=== PATIENT | male | born 1950 | race Caucasian/White ===

== ENCOUNTER → 2018-05-30 | Outpatient (CLI) | payer MEDICARE, BC ==
--- NOTE | 2018-05-30 22:09 | MR ---
MRI CERVICAL SPINE: CLINICAL HISTORY: Cervicalgia per order. Headache with neck and back pain for years causing pain or w eakness into left arm and fingers per patient. TECHNIQUE: Multiplanar, multisequence imaging of the cervical spine is performed without IV contrast. COMPARISON: Prior MRI cervical spine May 14, 2014.. FINDINGS: Sagittal images of the cervical spine show the craniocervical junction to remain within nor mal limits. The cervical and upper thoracic spinal cord remains normal in course, caliber, and signa l. Vertebral alignment is stable and straightened. The vertebral body heights are normal. There is multilevel disc desiccation with mild to moderate disc space narrowing. There is redemonstration pos terior disc herniation C2-C3 level effaces the anterior thecal sac. There is heterogeneous motor type II degenerative change in the anterior aspect of the upper to mid cervical spine with moderate to ad vanced spurring redemonstrated. Axial images at C2-C3 level redemonstrates subtle spondylolisthesis and bilateral uncovertebral facet degenerative changes as well as broad-based left paracentral disc protrusion, there is effacement of the anterior thecal sac with advanced left and mild right-sided neural foraminal narrowing redemonst rated. Axial images C3-C4 level demonstrate a focal vertebral facet degenerative changes bilaterally. There is mild left greater than right bilateral neural foraminal narrowing redemonstrated. Axial images at C4-C5 level shows a right paracentral spur disc complex effacing the anterior thecal sac with uncovertebral facet degenerative changes bilaterally, there is asymmetric mild to moderate r ight-sided neural foraminal narrowing. No significant change from prior. Axial images at C5-C6 level shows a right paracentral spurring effacing anterior thecal sac with mild bilateral neural foraminal narrowing due to marginal spurring. No significant change from prior. Axial images at C6-C7 level broad-based spur disc complex mildly effacing the anterior thecal sac and causing moderate left greater than right bilateral neural foraminal narrowing. Axial images at the C7-T1 level ligamentum flavum hypertrophy effacing posterior lateral thecal sac, bilateral neural foramina are patent. IMPRESSION: Stable straightening of cervical spine with multilevel degenerative changes as detailed a javan, no significant change from prior.
--- NOTE | 2018-05-31 16:26 | MR ---
EXAMINATION TYPE: MR lumbar spine wo/w con DATE OF EXAM: 05/30/2018 COMPARISON: None HISTORY: Low back pain TECHNIQUE: Multiplanar, multisequence images of the lumbar spine were acquired utilizing 7.5 mL intravenous Gada vist gadolinium contrast. FINDINGS: Postsurgical levels are extremely limited secondary to extensive susceptibility metallic ar tifact. There is postsurgical fixation of L4-S1. The remaining lumbar vertebral bodies maintain blanche l vertebral body heights. Conus medullaris is unremarkable terminating at 1201. Nonenhancing T2 and T 1 hypointense T12 posterior vertebral body lesion may represent inhomogeneous bone marrow is no enhan cement is seen. L1-L2: There is a broad-based disc bulge, facet arthropathy and ligamentum flavum buckling creating m oderate left neural foraminal narrowing and mild right neural foramina narrowing. No significant spin al canal stenosis. No abnormal enhancement. L2-L3: There is ligamentum flavum buckling and facet arthropathy creating impingement of the bilatera l exiting L2 nerve roots and moderate neural foraminal narrowing as well as moderate spinal canal evens nosis. No abnormal enhancement. L3-L4: There is limitation in evaluation of this level however there appears to be a broad-based disc bulge creating at least mild spinal canal stenosis and at least mild bilateral neural foraminal narr owing. No abnormal enhancement. L4-L5: Nondiagnostic due to extensive susceptibility artifact. L5-S1: Nondiagnostic due to extensive susceptibility artifact. IMPRESSION: 1. Extensive susceptibility artifact is seen at the postsurgical levels rendering the postsurgical le vels nondiagnostic. Therefore evaluation for epidural fibrosis at these levels is also nondiagnostic. 2. Degenerative disc disease from L1 through L4 creating moderate spinal canal stenosis at L2-L3 and mild spinal canal stenosis at L3-L4 as well as impingement of the L2 exiting nerve roots at L2-L3 and additional level there are foraminal narrowing as described above.
== END | disposition home or self-care (01) ==
LOC: RADMRIMAIN 11:15
PROVIDERS: ATTEND Psychiatry & Neurology Neurology
DX: M48.02 Spinal stenosis, cervical region (principal); M99.71 Connective tissue and disc stenosis of intervertebral foramina of cervical region; M50.21 Other cervical disc displacement, high cervical region; M43.12 Spondylolisthesis, cervical region; M47.812 Spondylosis without myelopathy or radiculopathy, cervical region; M99.73 Connective tissue and disc stenosis of intervertebral foramina of lumbar region; M48.061 Spinal stenosis, lumbar region without neurogenic claudication; M51.26 Other intervertebral disc displacement, lumbar region; M51.36 Other intervertebral disc degeneration, lumbar region; M46.96 Unspecified inflammatory spondylopathy, lumbar region
CPT/HCPCS: 82565; 84520; 72141; 72158; 36415; A9585

== ENCOUNTER 2018-08-22 06:22 | Day surgery (SDC) | payer MEDICARE, BC ==
[2018-08-20 09:36] VITALS: BMI 23.8
[~2018-08-22 06:22] MED LIST: DEXAMETHASONE SOD PHOSPHATE 10 MG/ML 1 ML VIAL IV ONE; HEPARIN SODIUM,PORCINE 5,000 UNIT/ML 1 ML VIAL SQ ONE; HYDROmorphone 0.5 MG/0.5 ML SYRINGE IVP PRN; LIDOCAINE 1% 20 ML VIAL (10MG/ML) FOR IV START INTRADERMA PRN; ONDANSETRON 4 MG/2 ML VIAL IVP ONE; SCOPOLAMINE 1.5MG/72HR PATCH TRANSDERM ONE; ceFAZolin IN SWFI 2 GM/20 ML SYRINGE IVP ONE
[2018-08-22] MEDS ORDERED: LACTATED RINGERS 1,000 ML IV ONE ×2 (06:52→10:23)
[2018-08-22] MEDS: LACTATED RINGERS 1,000 ML IV SCH (06:52)
[2018-08-22] MEDS ORDERED: MIDAZOLAM 2 MG/2 ML VIAL IVP ONE (07:32)
[2018-08-22] MEDS ORDERED: HYDROmorphone (PF) 1 MG/ML ONE (07:52)
[2018-08-22] MEDS ORDERED: SUCCINYLCHOLINE CHLORIDE 100 MG/5 ML SYR IV ONE (07:52)
[2018-08-22] MEDS ORDERED: MIDAZOLAM 2 MG/2 ML VIAL ONE (07:52)
[2018-08-22] MEDS ORDERED: ROPIVACAINE 5 MG/ML 30 ML VIAL ONE (07:52)
[2018-08-22] MEDS ORDERED: PROPOFOL 10 MG/ML 20 ML VIAL IV ONE (07:52)
[2018-08-22] MEDS ORDERED: ePHEDrine SULFATE/0.9% NACL/PF 50 MG/5 ML SYRINGE IV ONE (07:52)
[2018-08-22] MEDS ORDERED: LIDOCAINE 1% INJ 10MG/ML (20 ML MDV) ONE (07:52)
[2018-08-22] MEDS ORDERED: GLYCOPYRROLATE 0.2 MG/ML 2 ML VIAL ONE (07:52)
[2018-08-22] MEDS ORDERED: KETOROLAC 30 MG/ML 1 ML VIAL ONE (07:52)
[2018-08-22] MEDS ORDERED: fentaNYL (PF) 50 MCG/ML 2 ML AMP ONE (07:52)
[2018-08-22] MEDS ORDERED: DEXAMETHASONE SOD PHOS (MDV) 100 MG/10 ML VIAL ONE (07:52)
[2018-08-22] MEDS ORDERED: NEOSTIGMINE 1 MG/ML 10 ML VIAL ONE (07:52)
[2018-08-22] MEDS ORDERED: ROCURONIUM BROMIDE 10 MG/ML 10 ML VIAL IV ONE (07:52)
[2018-08-22] MEDS ORDERED: fentaNYL (PF) 50 MCG/ML 2 ML AMP IVP ONE (07:55)
--- NOTE | 2018-08-22 07:59 | P.GSHP ---
History of Present Illness H&P Date: 08/22/18 Chief Complaint: Bilateral inguinal hernia Patient on our service. Last seen in June. Patient has complaints of bilateral inguinal hernia. Patient mainly had complaints of left groin swelling and some discomfort there. No change in size since first seen. No history of previous repair. Past Medical History Past Medical History: GERD/Reflux, Hyperlipidemia, Hypertension, Osteoarthritis (OA) Additional Past Medical History / Comment(s): inguinal hernia-rand, states getting over cold History of Any Multi-Drug Resistant Organisms: None Reported Past Surgical History: Back Surgery, Joint Replacement, Orthopedic Surgery Additional Past Surgical History / Comment(s): Sinus surgery, spinal fusion, rand shoulder replacements, rand cataracts, surgery to correct muscle left eye for cross eyed, dupuytren contracture(rt hand x 3, left hand x 1), surgery left eye for glaucoma Past Anesthesia/Blood Transfusion Reactions: Previous Problems w/ Anesthesia Additional Past Anesthesia/Blood Transfusion Reaction / Comment(s): States problems "slows heart down" one time 30 yrs ago, Smoking Status: Former smoker - Past Family History Mother Family Medical History: No Reported History Father Family Medical History: GERD/Reflux, Hypertension Medications and Allergies Home Medications Medication Instructions Recorded Confirmed Type Aspirin 81 mg PO DAILY 09/17/14 08/20/18 History Labetalol [Trandate] 150 mg PO BID 09/17/14 08/20/18 History Omeprazole [PriLOSEC] 20 mg PO AC-SUPPER 09/17/14 08/20/18 History Pravastatin Sodium [Pravachol] 40 mg PO HS 09/17/14 08/20/18 History Tamsulosin [Flomax] 0.4 mg PO HS 08/20/18 08/20/18 History Allergies Allergy/AdvReac Type Severity Reaction Status Date / Time No Known Allergies Allergy Verified 08/20/18 09:24 Surgical - Exam Vital Signs Temp Pulse Resp BP Pulse Ox 97.5 F L 61 18 134/79 99 08/22/18 06:41 08/22/18 06:41 08/22/18 06:41 08/22/18 06:41 08/22/18 06:41 Physical exam: General: Well-developed, well-nourished HEENT: Normocephalic, sclerae nonicteric Abdomen: Nontender, nondistended, bilateral inguinal hernia left greater than right Extremities: No edema Neuro: Alert and oriented Assessment and Plan (1) Bilateral inguinal hernia Narrative/Plan: Will proceed with laparoscopic da Ede assisted repair bilateral inguinal hernia with mesh, possible open at this time. Risks of bleeding, infection, recurrence, bladder and bowel injury, numbness, nerve injury, conversion to an open procedure were discussed with the patient. The patient understands and wishes to proceed. Current Visit: Yes Status: Acute Code(s): K40.20 - BI INGUINAL HERNIA, W/O OBST OR GANGRENE, NOT SPCF RECUR SNOMED Code(s): 50190651
[2018-08-22] MEDS ORDERED: BUPIVACAIN-EPI 0.25%-1:200,000 30 ML VIAL SQ ONE (08:38)
--- NOTE | 2018-08-22 09:07 | P.ONQ ---
Anesthesiology Proc Note - PNB - Peripheral Nerve Block Performed Bilateral Transversus Abdominis Single Time Out Performed: Yes Procedure Start Time: 07:32 Indication: Acute Post-Operative Pain, Analgesia Specifically requested for management of pain by DrLulú: Everett Guzman Sedation Type: Sedate with meaningful contact maintained Preparation: Sterile Prep Position: Supine Catheter: None Needle Types: Other (see comment) (Pajunk) Needle Size: 100mm (4") Needle Gauge: 21 Technique: Ultrasound Injectate: Other (see comment) (0.25% rop/ .05% lido 30cc per side) Adjunct: Epinephrine (see comment for dilution ratio) (1:200,000) Blood Aspirated: No Pain Paresthesia on Injection Noted: No Resistance on Injection: Normal Events: Uneventful and Well Tolerated
[2018-08-22] MEDS ORDERED: HYDROcodone/APAP 5-325MG 1 EACH TAB PO PRN (10:27)
[2018-08-22] MEDS ORDERED: NALOXONE 0.4 MG/ML 1 ML VIAL IV PRN (10:27)
[2018-08-22] MEDS ORDERED: TAMSULOSIN 0.4 MG CAP.ER.24H PO STA ×2 (10:27→11:20)
--- NOTE | 2018-08-22 10:34 | P.OP ---
Date of Procedure: 08/22/18 Procedure(s) Performed: PREOPERATIVE DIAGNOSIS: Bilateral inguinal hernia POSTOPERATIVE DIAGNOSIS: Same PROCEDURE: Laparoscopic repair bilateral inguinal hernia with the da Ede robot assistance with mesh SURGEON: Megan EBL: Minimal ANESTHESIA: General COMPLICATIONS: None OPERATIVE PROCEDURE: Patient was placed in the operating table in the supine position. The patient was placed under general anesthesia. The patient was then placed the supine. The abdomen was prepped and draped in usual sterile fashion. A small curvilinear supraumbilical incision was made. The fascia was retracted anteriorly with Anitha forceps. The Veress needle was inserted. The saline drop test was normal. Insufflation took place to 15 mmHg. A 5 mm trocar was placed into the peritoneal cavity. This was later switched to a 12 mm trocar. 2 additional 8 mm trochars were placed in the right upper quadrant and left upper quadrant under visualization. The robotic arms were then brought in and docked into place. The fenestrated bipolar was used in the left arm and the laparoscopic avtar was utilized in the right arm. A 30 12 mm scope was used in the up position. The peritoneal cavity was inspected. The patient had a visible indirect hernia on the right that was small to moderate sized. The patient had sigmoid colon that was adherent to the peritoneum in the left lower quadrant making it difficult to visualize the hernia itself. The right side was first addressed. The peritoneum was incised in a horizontal fashion cephalad to the internal inguinal ring. Following that careful dissection of the preperitoneal space took place. This took place using both electrocautery, sharp dissection but primarily blunt dissection. Visualization of the pubic tubercle and Brenton's ligament took place medially. Full dissection took place laterally as well. The hernia sac was fully dissected. It should be noted that during our dissection the patient's bladder was noted to be already fairly distended. We did not have a Wheat catheter in place but was placed postoperatively. Despite the bladder having urinary did not impede our dissection. Once we had adequate space the 15 x 10 progrip mesh was advanced into the preperitoneal space and flattened out appropriately to cover all potential hernia sites. No sutures were used. The left side was then addressed. The peritoneal dissection took place in a similar fashion. The patient had a little larger indirect hernia on this side with a very large piece of preperitoneal fat extending into the canal as a lipoma. This was fully excised with the use of electrocautery and retrieved using an Endo Catch bag at the end of the procedure. The preperitoneal dissection took place so that both right and left sides were connected to one another anterior to the bladder. The mesh was again utilized and flattened out appropriately. The mesh was covering the opposite side mesh in the midline during that time. The peritoneal defect was then closed bilaterally using a locking 2-0 VLok suture. A small peritoneal defect on the right side was closed using a [id number] 3 -0 Vicryl stitch. The needles and lipoma were then removed. The pneumoperitoneum was then evacuated. The fascia at the 12 mm site was closed using the Frankie Alas technique and an 0 Vicryl stitch. The skin of all 3 sites was closed using a 4-0 Monocryl stitch. Skin glue was then applied. DISPOSITION: Stable to recovery room
[2018-08-22] MEDS ORDERED: PANTOPRAZOLE 40 MG TABLET PO SCH (17:30)
[2018-08-22] MEDS ORDERED: PRAVASTATIN SODIUM 40 MG TAB PO SCH (21:00)
[2018-08-22] MEDS ORDERED: LABETALOL 100 MG TAB PO SCH (21:00)
[2018-08-23] MEDS: LACTATED RINGERS 1,000 ML IV SCH (01:24)
[2018-08-23] MEDS ORDERED: LABETALOL 100 MG TAB PO SCH (09:00)
[2018-08-23] MEDS ORDERED: ASPIRIN 81 MG PO SCH (09:00)
[2018-08-23 16:57] VITALS: BP 121/66; PULSE 51; RESP 12; TEMP 97.9
--- NOTE | 2018-08-23 17:42 | P.DS ---
Providers Expected date of discharge: 08/23/18 Attending physician: Everett Guzman Primary care physician: Stuart Cottrell - Discharge Diagnosis(es) (1) Bilateral inguinal hernia Patient underwent elective bilateral inguinal hernia repair robotically yesterday. Postoperatively the patient was kept overnight because of a history of BPH and urinary retention. Wheat catheter was left in place overnight. Patient's catheter was removed this morning. He has been able to void he says a normal volume for him throughout the day. The volumes have been somewhat low however. Taking Flomax. He is anxious to go home. We'll discharge. Follow- up one week. Current Visit: Yes Status: Acute Plan - Discharge Summary Discharge Rx Participant: Yes New Discharge Prescriptions: New Hydrocodone/Acetaminophen [Anita 5-325] 1 tab PO Q6HR PRN 3 Days #10 tab PRN Reason: Pain No Action Aspirin 81 mg PO DAILY Pravastatin Sodium [Pravachol] 40 mg PO HS Omeprazole [PriLOSEC] 20 mg PO AC-SUPPER Labetalol [Trandate] 100 mg PO BID Tamsulosin [Flomax] 0.4 mg PO HS Discharge Medication List Aspirin 81 mg PO DAILY 09/17/14 [History] Labetalol [Trandate] 100 mg PO BID 09/17/14 [History] Omeprazole [PriLOSEC] 20 mg PO AC-SUPPER 09/17/14 [History] Pravastatin Sodium [Pravachol] 40 mg PO HS 09/17/14 [History] Tamsulosin [Flomax] 0.4 mg PO HS 08/20/18 [History] Hydrocodone/Acetaminophen [Anita 5-325] 1 tab PO Q6HR PRN 3 Days #10 tab [Rx] Follow up Appointment(s)/Referral(s): Everett Guzman MD [Medical Doctor] - 08/29/18 1:50 pm Patient Instructions/Handouts: *Surgery [facility] - (Anesthesia) Discharge Instructions Outpatient Surgery, Inguinal Hernia Repair (DC)
== END 2018-08-23 18:20 | disposition home or self-care (01) ==
LOC: OR 06:22 → 4SSUR 10:26 → OR 08-23 18:20
PROVIDERS: ATTEND Surgery
DX: K40.20 Bilateral inguinal hernia, without obstruction or gangrene, not specified as recurrent (principal); K21.9 Gastro-esophageal reflux disease without esophagitis; E78.5 Hyperlipidemia, unspecified; I10 Essential (primary) hypertension; N40.0 Benign prostatic hyperplasia without lower urinary tract symptoms; M19.90 Unspecified osteoarthritis, unspecified site; E78.00 Pure hypercholesterolemia, unspecified; Z87.891 Personal history of nicotine dependence; Z79.82 Long term (current) use of aspirin; Z79.899 Other long term (current) drug therapy
CPT/HCPCS: 49650; 64488; 88302; C1781; J2250; J1644; J1100 ×2; J2710; J2405; J2001; J3010; J1885; J1170; J2795; J0330; J2704; J0690

== ENCOUNTER 2019-01-03 07:08 | Emergency (ER) | payer MEDICARE, BC ==
[2019-01-03 07:27] VITALS: BP 166/87; PULSE 61; RESP 18; TEMP 97.2
[2019-01-03] MEDS ORDERED: HYDROcodone/APAP 5-325MG 1 EACH TAB PO STA (07:46)
[2019-01-03] MEDS ORDERED: ORPHENADRINE 30 MG/ML 2 ML VIAL IM STA (07:46)
[2019-01-03] MEDS ORDERED: KETOROLAC 60 MG/2 ML VIAL IM STA (07:46)
--- NOTE | 2019-01-03 07:49 | ED ---
Back Pain HPI - General Chief Complaint: Back Pain/Injury Stated Complaint: Back Pain Time Seen by Provider: 01/03/19 07:35 Source: patient, RN notes reviewed, old records reviewed Limitations: no limitations - History of Present Illness Initial Comments: Patient is a 68-year-old male presents emergency department today for evaluation with complaints of lower back pain, progressively worsens Monday. He has a pain management stimulator within the left side of his lower back. Patient reports he has no oral pain pills at this time. Patient states that he sees Dr. Keller for pain management in this spine stimulator. He has had no other significant complaints. Patient denies any saddle anesthesias. He reports the pain radiates from the left aspect of his lower back and will radiate, hip and leg. - Related Data Home Medications Medication Instructions Recorded Confirmed Aspirin 81 mg PO DAILY 09/17/14 01/03/19 Labetalol [Trandate] 100 mg PO BID 09/17/14 01/03/19 Omeprazole [PriLOSEC] 20 mg PO AC-SUPPER 09/17/14 01/03/19 Pravastatin Sodium [Pravachol] 40 mg PO HS 09/17/14 01/03/19 Tamsulosin [Flomax] 0.4 mg PO HS 08/20/18 01/03/19 Cholecalciferol [Vitamin D3 (25 1,000 unit PO DAILY 01/03/19 01/03/19 Mcg = 1000 Iu)] Ibuprofen [Motrin Ib] 400 mg PO Q6H PRN 01/03/19 01/03/19 Previous Rx's Medication Instructions Recorded Cyclobenzaprine [Flexeril] 10 mg PO TID #20 tab 01/03/19 Ketorolac [Toradol] 10 mg PO Q6HR #20 tab 01/03/19 Allergies Allergy/AdvReac Type Severity Reaction Status Date / Time bee venom protein (honey bee) AdvReac Swelling Verified 01/03/19 08:09 Review of Systems ROS Statement: Those systems with pertinent positive or pertinent negative responses have been documented in the HPI. ROS Other: All systems not noted in ROS Statement are negative. Past Medical History Past Medical History: GERD/Reflux, Hyperlipidemia, Hypertension, Osteoarthritis (OA) Additional Past Medical History / Comment(s): inguinal hernia-rand, states getting over cold History of Any Multi-Drug Resistant Organisms: None Reported Past Surgical History: Back Surgery, Joint Replacement, Orthopedic Surgery Additional Past Surgical History / Comment(s): Sinus surgery, spinal fusion, rand shoulder replacements, rand cataracts, surgery to correct muscle left eye for cross eyed, dupuytren contracture(rt hand x 3, left hand x 1), surgery left eye for glaucoma Past Anesthesia/Blood Transfusion Reactions: Previous Problems w/ Anesthesia Additional Past Anesthesia/Blood Transfusion Reaction / Comment(s): States problems "slows heart down" one time 30 yrs ago, Past Psychological History: No Psychological Hx Reported Smoking Status: Former smoker - Past Family History Mother Family Medical History: No Reported History General Exam - General Exam Comments Initial Comments: 68-year-old male. Alert and oriented. No significant distress. Limitations: no limitations General appearance: alert, in no apparent distress Head exam: Present: atraumatic, normocephalic, normal inspection Eye exam: Present: normal appearance, PERRL, EOMI. Absent: scleral icterus, conjunctival injection, periorbital swelling ENT exam: Present: normal exam, mucous membranes moist Neck exam: Present: normal inspection. Absent: tenderness, meningismus, lymphadenopathy Respiratory exam: Present: normal lung sounds bilaterally. Absent: respiratory distress, wheezes, rales, rhonchi, stridor Cardiovascular Exam: Present: regular rate, normal rhythm, normal heart sounds. Absent: systolic murmur, diastolic murmur, rubs, gallop, clicks GI/Abdominal exam: Present: soft, normal bowel sounds. Absent: distended, tenderness, guarding, rebound, rigid Extremities exam: Present: normal inspection, full ROM, normal capillary refill. Absent: tenderness, pedal edema, joint swelling, calf tenderness Back exam: Present: normal inspection Neurological exam: Present: alert, oriented X3, CN II-XII intact Psychiatric exam: Present: normal affect, normal mood Skin exam: Present: warm, dry, intact, normal color. Absent: rash Course Vital Signs 01/03/19 07:25 Temperature 97.2 F L Pulse Rate 61 Respiratory 18 Rate Blood Pressure 166/87 O2 Sat by Pulse 95 Oximetry Medical Decision Making - Medical Decision Making 38-year-old male comes in today feeling he thrown his back out, complaining of lower back pain, pain near his spine stimulator and down the left leg. There is no saddle anesthesia. No recent fall or trauma. He has been doing a lot heavy lifting and twisting. Patient at this time x-rays that she'll show Dr. lynch. No evidence of significant disc space loss. Patient was given Norflex Toradol 1 by mouth [place]. Discussed appropriate follow-up with primary care doctor. Patient given a referral back to neurology. He will see him today for spinal injections or his neck. Discussed he can make an appointment with them to discuss his new lower back pain. - Radiology Data Radiology results: report reviewed Extensive multilevel degenerative changes lower spine, rotary dextroscoliosis nerve stimulant or posterior declined for S1. No evidence of vertebral body height loss or malalignment. Disposition Clinical Impression: Spasm of back muscles, Sciatic leg pain Disposition: HOME SELF-CARE Condition: Good Instructions (If sedation given, give patient instructions): Acute Low Back Pain (ED) Additional Instructions: Follow-up with primary care physician. Patient should take the medications as prescribed. Alternate between heat and ice over the lower back. Prescriptions: Cyclobenzaprine [Flexeril] 10 mg PO TID #20 tab Ketorolac [Toradol] 10 mg PO Q6HR #20 tab Is patient prescribed a controlled substance at d/c from ED?: No Referrals: Stuart Cottrell MD [Primary Care Provider] - 1-2 days Time of Disposition: 08:35
--- NOTE | 2019-01-03 08:06 | XR ---
EXAMINATION TYPE: XR lumbar spine 2 or 3V DATE OF EXAM: 01/03/2019 CLINICAL HISTORY: Severe back pain status post fusion of the lumbar spine TECHNIQUE: Frontal and lateral images of the lumbar spine are obtained. COMPARISON: None FINDINGS: There are 5 lumbar type vertebral bodies identified. There is fusion of L4-S1 partially ob scured the lumbar vertebral bodies at this level. Nerve root stimulators also seen. There is a rotato ry dextroscoliosis of the lumbar spine. Bridging anterior osteophytes and multilevel facet arthropath y are also seen. Throughout the lumbar spine there is intervertebral disc space narrowing and endplat e sclerosis. L3 vertebral body is slightly obscured on the lateral view secondary to the rotatory sco liosis however on the frontal view demonstrates no vertebral body height loss. No suspicious calcific ations in the visualized abdomen. No dilated bowel in the visualized abdomen. IMPRESSION: Extensive multilevel degenerative change of the lumbar spine, rotatory dextroscoliosis, n erve stimulator, and postsurgical change of L4-S1. No gross evidence of vertebral body height loss or malalignment.
[2019-01-03] MEDS ORDERED: ACET/COD 300 MG/30 MG STARTER PACK 6 TAB BTL PO STA (08:36)
== END 2019-01-03 08:56 | disposition home or self-care (01) ==
LOC: EC 07:08
DX: M62.830 Muscle spasm of back (principal); M54.42 Lumbago with sciatica, left side; K21.9 Gastro-esophageal reflux disease without esophagitis; E78.5 Hyperlipidemia, unspecified; I10 Essential (primary) hypertension; M19.90 Unspecified osteoarthritis, unspecified site; Z79.82 Long term (current) use of aspirin; Z79.899 Other long term (current) drug therapy; Z91.030 Bee allergy status; Z98.1 Arthrodesis status; Z87.891 Personal history of nicotine dependence
CPT/HCPCS: 72100; 99284; 96372 ×2; J2360; J1885

== ENCOUNTER → 2019-01-10 | Outpatient (CLI) | payer MEDICARE, BC ==
--- NOTE | 2019-01-10 12:21 | CT ---
EXAMINATION TYPE: CT lumbar spine wo con DATE OF EXAM: 01/10/2019 COMPARISON: None HISTORY: Lumbago CT DLP: 603.0 mGycm CONTRAST: None TECHNIQUE: CT of the lumbar spine is performed on a spiral scan at 3 mm thick sections. Reconstructed images are performed in the coronal and sagittal planes. FINDINGS: T12-L1: Broad-based disc bulge has moderate anterior thecal sac compression. Facet hypertrophy is pos terior lateral thecal sac compression. Pedicles appear congenitally short. Spinal canal stenosis shou ld be considered. L1-L2: Minimal disc bulging is anterior thecal sac contact. No spinal canal stenosis is present. Mode rate bilateral foraminal narrowing is present. L2-L3: Disc bulge is present with anterior thecal sac flattening. Facet hypertrophy is posterior late ral thecal sac compression. Mild spinal canal narrowing may be present. There are congenitally short pedicles. L3-L4: Loss of disc height is present to this level. Susceptibility artifact from fixation pedicle sc rews and rods L4 present causing limitation. Some right thecal sac compression from facet hypertrophy may be present. L4-L5: Loss of disc height is present in the sagittal plane. This level is poorly visualized due to s usceptibility artifact. L5-S1: There is loss of disc height through this level. There is poor visualization of the spinal can al at this level. Large spondylolysis spurs are present. Stimulator leads are entering lower thoracic region. 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 Findings appear milder at the remaining upper and mid lumbar spine. 2. Postsurgical changes L4-5 L5-S1 with limited evaluation due to beam hardening artifact
== END ==
LOC: RADCTMAIN 07:55
PROVIDERS: ATTEND Psychiatry & Neurology Neurology
DX: M48.061 Spinal stenosis, lumbar region without neurogenic claudication (principal); M51.26 Other intervertebral disc displacement, lumbar region; M46.96 Unspecified inflammatory spondylopathy, lumbar region; Z98.890 Other specified postprocedural states
CPT/HCPCS: 72131

== ENCOUNTER 2024-07-23 08:06 | Day surgery (SDC) | payer MEDICARE, BC ==
[2024-07-23] MEDS: diazePAM 5 MG TAB PO STA (08:45)
[2024-07-23 09:33] VITALS: TEMP 98
--- NOTE | 2024-07-23 10:50 | CT ---
EXAMINATION TYPE: CT thor lumbar spine w con CT DLP: 2411 mGycm, Automated exposure control for dose reduction was used. DATE OF EXAM: 07/23/2024 10:19 AM COMPARISON: CT lumbar spine 01/10/2019, fluoroscopic myelogram 07/23/2024, lumbar spine radiograph 01/03, MRI lumbar spine 05/30/2018. CLINICAL INDICATION:Male, 73 years old with history of M48.061,M51.36, Z98.1; PHH, post myelogram TECHNIQUE: Multiple axial images were obtained of the thoracolumbar spine after fluoroscopic myelogr am. Soft tissue and bone windows in coronal and sagittal planes were obtained and reviewed. Contrast used:13 mL of Isovue M200 with IV Contrast FINDINGS: No acute fracture. No vertebral body height loss. There are 6 lumbar type vertebral bodies identified . Postsurgical changes with bilateral pedicular screws and rods involving L5-S1 with laminectomy defe cts. Multilevel anterior osteophytosis throughout the visualized spine. Minimal S-shaped scoliotic cu rvature of the visualized spine. Grade 1 anterolisthesis of L6 on S1. Mild retrolisthesis of L4 on L5 . Prominent Schmorl's node involving the inferior endplate of the T11 vertebral body. Mild degenerati ve changes of bilateral SI joints. Left gluteal neurostimulator lead power pack with 2 leads entering the spinal canal at the T12-L1 interspace and courses superiorly terminating at the T5 vertebral bod y level. Additional stimulator lead enters the spinal canal at the C7-T1 interspace. Incidental bilat eral C7 ribs. Poor visualization of contrast within the upper thoracic spine which limits evaluation of the spinal canal at the T4 level. Streak artifact from hardware limits evaluation of the lower lumbar spine. No significant central canal stenosis from L5 through S1. There is mild bilateral neural foraminal st enosis at L5 L6 secondary to facet arthropathy. Broad-based disc bulge and ligamentum flavum buckling and bilateral facet arthropathy at L4-L5 result s in fenb-ge-aritomoz central canal stenosis. Moderate bilateral neural foramen stenosis at this leve l. Broad-based disc bulge with ligamentum flavum buckling and bilateral facet arthropathy to be to moder ate central canal stenosis at L3-L4. Moderate bilateral neural foraminal stenosis at this level. No other level of significant central canal or neural foraminal stenosis definitively identified with in the thoracolumbar spine. The visualized portions of the lungs are clear. Sigmoid diverticulosis without surrounding inflammato ry changes to suggest acute diverticulitis. IMPRESSION: 1. No evidence for acute spinal fracture. 2. Postsurgical changes of the lower lumbosacral spine redemonstrated. Hardware appears intact. This creates streak artifact which limits evaluation. 3. Moderate degenerative disc disease and facet arthropathy of the lumbar spine from L3 through L5 as described above. No other level of significant central canal or neural foraminal stenosis definitive ly identified within the thoracolumbar spine. Poor evaluation of the upper thoracic spine due to limi chandrakant contrast extension in the spinal canal at this level. [facility], , 07/23/2024 10:48 AM
--- NOTE | 2024-07-23 11:03 | FL ---
EXAMINATION TYPE: FL myelogram 2 or more regions DATE OF EXAM: 07/23/2024 10:11 AM COMPARISON: CT 01/10/2019 CLINICAL INDICATION:Male, 73 years old with history of M48.061,M51.36, Z98.1; FINDINGS: Informed consent was obtained including discussion of the risks and benefits. Timeout was taken per p rotocol. Real-time fluoroscopy was performed to localize the lumbar spine access site. The patient wa s prepped and draped. Under sterile technique with local anesthesia a 22-gauge spinal needle was intr oduced into the arachnoid space with return of clear CSF. A total of 13 cc of Isovue-200 M was inject ed with appropriate opacification of the thecal sac. Total fluoroscopy time was 1 min 5 seconds Total fluoroscopic images 0. Radiographs taken: 2 DAP: Not Reported by machine [id number] IMPRESSION: Successful lumbar puncture with injection for CT myelogram. CT pending. [facility], , 07/23/2024 11:01 AM
[2024-07-23 18:48] VITALS: PULSE 56
[2024-07-23 18:50] VITALS: RESP 16
[2024-07-23 18:53] VITALS: BP 120/71
== END 2024-07-23 13:35 | disposition home or self-care (01) ==
LOC: RADPROMAIN 08:06 → EDSTATUS 08:15 → RADPROMAIN 13:35
PROVIDERS: ATTEND Orthopaedic Surgery
DX: M48.061 Spinal stenosis, lumbar region without neurogenic claudication (principal); M48.02 Spinal stenosis, cervical region; M50.31 Other cervical disc degeneration, high cervical region; M51.361 Other intervertebral disc degeneration, lumbar region with lower extremity pain only; Z98.1 Arthrodesis status
CPT/HCPCS: 62305; 72129; 72132